=== PATIENT | male | born 1960 | race African-American/Black ===

== ENCOUNTER 2021-12-19 12:15 | Emergency (ER) | payer BC ==
[2021-12-19] MEDS ORDERED: Famotidine 20 MG Tab PO ONE (15:05)
[2021-12-19] MEDS ORDERED: Alum Hydrox/Mag Hydrox/Simeth 30 ML, Lidocaine 2% 15 ML PO ONE ×2 (15:05)
[2021-12-19 15:48] LABS: ESTIMATED GFR 75 mL/min (>60)
== END 2021-12-19 17:49 | disposition home or self-care (01) ==
LOC: JD.ED 12:15
DX: K29.00 Acute gastritis without bleeding (principal); E11.9 Type 2 diabetes mellitus without complications; Z79.899 Other long term (current) drug therapy
CPT/HCPCS: 36415; 71045; 76705; 80053; 83690; 84484; 85025; 93005; 99284; A9270; 93010; 99283